=== PATIENT | female | born 1950 | race Asian ===

== ENCOUNTER 2020-07-13 09:34 | Emergency (ER) | payer MEDICARE, OTHER ==
[2020-07-13] MEDS ORDERED: NORMAL SALINE 1000 ML 1,000 ML IV ONE (11:21)
[2020-07-13] MEDS ORDERED: ONDANSETRON HCL INJ/PF 4 MG/2 ML SDV IV ONE (11:21)
[2020-07-13] MEDS ORDERED: MORPHINE SULFATE 10 MG/ML INJ IV ONE (11:21)
--- NOTE | 2020-07-13 11:41 | RADIOLOGY REPORT (SQ) ---
EXAM DESCRIPTION: CHEST SINGLE VIEW IMAGES COMPLETED DATE/TIME: 07/13/2020 11:31 am REASON FOR STUDY: fever, nausea/vomiting COMPARISON: None. EXAM PARAMETERS: NUMBER OF VIEWS: One view. TECHNIQUE: Single frontal radiographic view of the chest acquired. RADIATION DOSE: NA LIMITATIONS: None. FINDINGS: LUNGS AND PLEURA: No opacities, masses or pneumothorax. No pleural effusion. MEDIASTINUM AND HILAR STRUCTURES: No masses. Contour normal. HEART AND VASCULAR STRUCTURES: Heart normal in size. Normal vasculature. BONES: No acute findings. HARDWARE: None in the chest. OTHER: No other significant finding. IMPRESSION: NO ACUTE RADIOGRAPHIC FINDING IN THE CHEST. TECHNICAL DOCUMENTATION: JOB ID: [id number] 2010 [employer]- All Rights Reserved Reading location - IP/workstation name: [email or web address]
--- NOTE | 2020-07-13 11:52 | ER Document Report ---
ED General - General Chief Complaint: Abdominal Pain Stated Complaint: ABDOMINAL PAIN, FEVER, NAUSEA VOMITING Time Seen by Provider: 07/13/20 10:56 Primary Care Provider: DAVID STILL MD [Primary Care Provider] - Follow up as needed TRAVEL OUTSIDE OF THE [place] IN LAST 30 DAYS: No - HPI Notes: Patient is a 70-year-old female presents emergency department for evaluation of abdominal pain. She states it started Thursday and is progressively worsened. She describes it is periumbilical and states that radiates to the left side. Pain is worsened by movement. She has had very little appetite. She had one episode of nonbloody, nonbilious emesis on Thursday. She had one episode of diarrhea yesterday. She states she had a fever of 101 degrees. She denies any cough or shortness of breath. No nasal congestion or change in sense of smell. She did have a recent EGD with stomach biopsy secondary to a mass. This was performed at [facility]. Patient has not tried anything to feel better. She states she is really not eating much. - Related Data Allergies/Adverse Reactions: No Known Allergies Allergy (Unverified 05/20/12 19:11) Home Medications: List reviewed at bedside Past Medical History - General Information source: Patient, Relative - Daughter - Social History Smoking Status: Never Smoker Chew tobacco use (# tins/day): No Frequency of alcohol use: None Drug Abuse: None Family History: Arthritis, CAD, DM, Hyperlipidemia, Hypertension, Malignancy Patient has homicidal ideation: No - Past Medical History Cardiac Medical History: Reports: Hx Hypercholesterolemia, Hx Hypertension Denies: Hx Coronary Artery Disease Pulmonary Medical History: Denies: Hx Asthma Endocrine Medical History: Reports: Hx Diabetes Mellitus Type 2. Denies: Hx Diabetes Mellitus Type 1 Past Surgical History: Reports: Hx Section, Hx Oral Surgery - Immunizations Immunizations up to date: Yes Hx Diphtheria, Pertussis, Tetanus Vaccination: Yes Review of Systems - Review of Systems Constitutional: See HPI EENT: No symptoms reported Cardiovascular: No symptoms reported Respiratory: No symptoms reported Gastrointestinal: See HPI Genitourinary: No symptoms reported Musculoskeletal: No symptoms reported Skin: No symptoms reported Neurological/Psychological: No symptoms reported Physical Exam - Vital signs Vitals: Temp Pulse Resp BP Pulse Ox 98.2 F 99 24 H 132/58 H 97 07/13/20 09:41 01/01/21 09:41 07/13/20 09:41 07/13/20 09:41 07/13/20 09:41 - Notes Notes: This is a 70-year-old female who appears her stated age in a mild to moderate distress. Vital signs reviewed, please refer to chart. Head is normocephalic, atraumatic. Pupils equal round, reactive to light. Neck is supple without meningismus. Heart is regular rate and rhythm. Lungs are clear to auscultation bilaterally. Abdomen is moderately tender in the epigastrium with significant tenderness in the left upper quadrant, voluntary guarding without rebound, normoactive bowel sounds throughout. Extremities without cyanosis, clubbing. Posterior calves are nontender. Peripheral pulses are equal. Skin is warm and dry. Patient is awake, alert, neurological exam is nonfocal. Course - Re-evaluation Re-evalutation: 07/13/20 11:51 Patient presents to the emergency department for evaluation. She is had a fever, vomiting, diarrhea. She has significant left upper quadrant tenderness. The patient has multiple comorbidities, did recently have instrumentation. Laboratory investigations have been ordered, including influenza swab. I did order chest x-ray given the current Covid pandemic as well, but she really does have minimal respiratory symptoms to report. Influenza swab ordered. Patient will be given IV fluids, pain medicine, nausea medication. She is to be kept n.p.o. She is currently stable, we will continue to monitor. - Vital Signs Vital signs: Temp Pulse Resp BP Pulse Ox 100.3 F 97 24 H 116/61 98 07/13/20 13:43 07/13/20 13:43 07/13/20 13:43 07/13/20 13:43 07/13/20 13:43 - Laboratory Results Result Diagrams: 07/13/20 11:45 07/13/20 13:22 Laboratory Results Interpreted: 07/13/20 07/13/20 07/13/20 11:45 13:00 13:22 WBC 13.9 H Hgb 8.9 L Hct 27.6 L MCV 63 L MCH 20.4 L RDW 17.3 H Plt Count 470 H Lymph % (Auto) 5.6 L Absolute Neuts (auto) 12.3 H Seg Neutrophils % 88.5 H Sodium 133.1 L Carbon Dioxide 18 L BUN 24 H Glucose 121 H Calcium 8.2 L AST 438 H Albumin 3.3 L Urine Protein 30 H Urine Glucose (UA) >=500 H Urine Ketones TRACE H Critical Laboratory Results Reviewed: No Critical Results - Radiology Results Radiology Results Interpreted: 07/13/20 17:07 Abdomen/Pelvis CT 07/13/20 11:22 IMPRESSION: 1. LARGE HETEROGENOUS MASS LOCATED POSTERIOR TO THE STOMACH AND SUPERIOR TO THE LEFT KIDNEY DESCRIBED ABOVE. THIS IS SEPARATE FROM THE KIDNEY. MAY BE ASSOCIATED WITH THE POSTERIOR WALL OF THE STOMACH. 2. SCLEROTIC LESION IN THE LEFT ISCHIUM. DIFFICULT TO DETERMINE IF THIS IS BENIGN SCLEROSIS OR METASTASIS. 3. OTHER INCIDENTAL FINDINGS. SMALL CORTICAL CYST IN THE LEFT KIDNEY. SMALL UMBILICAL HERNIA. NO OTHER SIGNIFICANT OR ACUTE FINDING IN THE ABDOMEN OR PELVIS ON CT SCAN WITH IV CONTRAST. Chest X-Ray 07/13/20 11:22 IMPRESSION: NO ACUTE RADIOGRAPHIC FINDING IN THE CHEST. Critical Radiology Results Reviewed: No Critical Results Discharge - Discharge Clinical Impression: LUQ abdominal pain Nausea & vomiting Qualifiers: Vomiting type: unspecified Vomiting Intractability: non-intractable Qualified Code(s): R11.2 - Nausea with vomiting, unspecified Diarrhea Qualifiers: Diarrhea type: unspecified type Qualified Code(s): R19.7 - Diarrhea, unspecified Anemia Qualifiers: Anemia type: unspecified type Qualified Code(s): D64.9 - Anemia, unspecified Condition: Stable Disposition: HOME, SELF-CARE Instructions: Abdominal Pain ([facility]), Intravenous (IV) Fluids ([facility]), Diarrhea, Nonspecific ([facility]), Vomiting ([facility]) Additional Instructions: Your CT scan showed your known masses, and other findings. I have nothing to compare this to, but please bring these reports to your physician at [facility]. In addition, your hemoglobin was found to be 8.9. I do not have any old labs to compare this, and I am unsure as to whether or not this is a new anemia. This should be addressed by your primary care provider as well. Otherwise, no significant reason has been found as of yet for your abdominal pain, vomiting, or diarrhea. I have ordered a Covid test, you should quarantine at home until results are obtained. Zofran as needed for nausea, Carpenter as needed for severe pain. Please watch for constipation with this medication. Small, frequent sips of fluids. If you develop worsening or new concerning symptoms of any sort, please return immediately to the emergency department for reevaluation, and notify them that you are in fact a PUI. Referrals: DAVID STILL MD [Primary Care Provider] - Follow up as needed
[2020-07-13 12:04] LABS: ABSOLUTE LYMPHOCYTES (AUTO) 0.8 10^3/uL (0.5-4.7); ABSOLUTE MONOCYTES (AUTO) 0.8 10^3/uL (0.1-1.4); ABSOLUTE NEUT (AUTO) 12.3 10^3/uL (1.7-8.2); BASOPHILS % (AUTO) 0.2 % (0-2); EOSINOPHILS % (AUTO) 0.2 % (0-6); HEMATOCRIT 27.6 % (36.0-47.0); HEMOGLOBIN 8.9 g/dL (12.0-15.5); LYMPHOCYTES % (AUTO) 5.6 % (13-45); MEAN CORPUSCULAR HEMOGLOBIN 20.4 pg (27.0-33.4); MEAN CORPUSCULAR HGB CONC 32.3 g/dL (32.0-36.0); MONOCYTES % (AUTO) 5.5 % (3-13); PLATELET COUNT 470 10^3/uL (150-450); RED BLOOD COUNT 4.38 10^6/uL (3.72-5.28); RED CELL DISTRIBUTION WIDTH 17.3 % (11.5-14.0); SEGMENTED NEUTROPHILS % (AUTO) 88.5 % (42-78); TOTAL CELLS COUNTED % (AUTO) 100 %; WHITE BLOOD COUNT 13.9 10^3/uL (4.0-10.5)
[2020-07-13 12:24] LABS: ANISOCYTOSIS 1+; BURR CELLS SLIGHT; HYPOCHROMASIA 1+; MEAN CORPUSCULAR VOLUME 63 fl (80-97); OVALOCYTES SLIGHT; POIKILOCYTOSIS SLIGHT; POLYCHROMASIA SLIGHT; TOXIC VACUOLATION PRESENT
[2020-07-13 12:25] LABS: PLATELET COMMENT INCREASED
[2020-07-13 13:18] LABS: APPEARANCE,URINE SLIGHTLY-CLOUDY; BILIRUBIN,URINE NEGATIVE (NEGATIVE); COLOR,URINE YELLOW; GLUCOSE, URINE >=500 mg/dL (NEGATIVE); KETONES,URINE TRACE mg/dL (NEGATIVE); LEUKOCYTE ESTERASE,URINE NEGATIVE (NEGATIVE); NITRITE,URINE NEGATIVE (NEGATIVE); PROTEIN,URINE 30 mg/dL (NEGATIVE); URINE SPECIFIC GRAVITY 1.024; UROBILINOGEN,URINE NEGATIVE mg/dL (<2.0)
[2020-07-13 13:32] LABS: A TYPE INFLUENZA AG NEGATIVE (NEGATIVE); B INFLUENZA AG NEGATIVE (NEGATIVE)
[2020-07-13 13:53] LABS: ALBUMIN 3.3 g/dL (3.5-5.0); ALKALINE PHOSPHATASE 65 U/L (38-126); ANION GAP 12 (5-19); ASPARTATE AMINO TRANSFERASE 438 U/L (14-36); BILIRUBIN,DIRECT 0.3 mg/dL (0.0-0.4); BILIRUBIN,TOTAL 0.6 mg/dL (0.2-1.3); BLOOD UREA NITROGEN 24 mg/dL (7-20); CALCIUM 8.2 mg/dL (8.4-10.2); CARBON DIOXIDE 18 mmol/L (22-30); CHLORIDE 103 mmol/L (98-107); GLUCOSE 121 mg/dL (75-110); POTASSIUM 3.9 mmol/L (3.6-5.0); TOTAL PROTEIN 6.6 g/dL (6.3-8.2)
--- NOTE | 2020-07-13 15:39 | RADIOLOGY REPORT (SQ) ---
EXAM DESCRIPTION: CT ABD/PELVIS WITH IV ONLY IMAGES COMPLETED DATE/TIME: 07/13/2020 2:42 pm REASON FOR STUDY: upper abdominal pain, recent EGD with biopsy COMPARISON: None. TECHNIQUE: CT scan of the abdomen and pelvis performed using helical scanning technique with dynamic intravenous contrast injection. No oral contrast. Images reviewed with lung, soft tissue, and bone windows. Reconstructed coronal and sagittal MPR images reviewed. Delayed images for evaluation of the urinary system also acquired. All images stored on PACS. All CT scanners at this facility use dose modulation, iterative reconstruction, and/or weight based d osing when appropriate to reduce radiation dose to as low as reasonably achievable (ALARA). [facility]: Dose Right [facility]: CareDose [facility]: Dose Right [facility]: Teradose 4D [facility]: [employer] CONTRAST TYPE AND DOSE: contrast/concentration: Isovue 350.00 mmol/ml; Total Contrast Delivered: 75. 0 ml; Total Saline Delivered: 67.0 ml RENAL FUNCTION: BUN 24 creatinine 0.68. RADIATION DOSE: CT Rad equipment meets quality standard of care and radiation dose reduction techniq ues were employed. CTDIvol: 6.3 - 6.3 mGy. DLP: 652 mGy-cm.. LIMITATIONS: None. FINDINGS: LOWER CHEST: Linear atelectasis versus scarring in the lung bases. LIVER: Normal size. Mild fatty infiltration. No masses. No dilated ducts. SPLEEN: Normal size. No focal lesions. PANCREAS: No masses. No significant calcifications. No adjacent inflammation or peripancreatic fluid collections. Pancreatic duct not dilated. GALLBLADDER: No identified stones by CT criteria. No inflammatory changes to suggest cholecystitis. ADRENAL GLANDS: The right adrenal gland is unremarkable. A normal left adrenal gland is not visualiz ed. RIGHT KIDNEY AND URETER: No solid masses. No significant calcifications. No hydronephrosis or hyd roureter. LEFT KIDNEY AND URETER: Lower pole cortical cyst. No solid masses. No significant calcifications. No hydronephrosis or hydroureter. AORTA AND VESSELS: No aneurysm. No dissection. Renal arteries, SMA, celiac without stenosis. RETROPERITONEUM: There is a large heterogenous mass located posterior to the stomach and superior to the left kidney. On coronal and sagittal images this appears to be separate from the kidney itself. May be associated with the posterior wall of the stomach. This mass has maximum transverse measurem ents of 11.5 x 12.5 cm and craniocaudal measurement of 13 cm. There is anterior displacement of the pancreas, stomach, and spleen and inferior and lateral displacement of the left kidney. BOWEL AND PERITONEAL CAVITY: No masses or inflammatory changes. No free fluid or peritoneal masses. APPENDIX: Normal. PELVIS: No mass. No free fluid. Normal bladder. ABDOMINAL WALL: No masses. Small umbilical hernia containing fat. BONES: Sclerotic lesion in the left ischium. No acute findings. OTHER: No other significant finding. IMPRESSION: 1. LARGE HETEROGENOUS MASS LOCATED POSTERIOR TO THE STOMACH AND SUPERIOR TO THE LEFT KIDNEY DESCRI BED ABOVE. THIS IS SEPARATE FROM THE KIDNEY. MAY BE ASSOCIATED WITH THE POSTERIOR WALL OF THE STOMA CH. 2. SCLEROTIC LESION IN THE LEFT ISCHIUM. DIFFICULT TO DETERMINE IF THIS IS BENIGN SCLEROSIS OR METAS TASIS. 3. OTHER INCIDENTAL FINDINGS. SMALL CORTICAL CYST IN THE LEFT KIDNEY. SMALL UMBILICAL HERNIA. NO O THER SIGNIFICANT OR ACUTE FINDING IN THE ABDOMEN OR PELVIS ON CT SCAN WITH IV CONTRAST. TECHNICAL DOCUMENTATION: JOB ID: [id number] Quality ID # [id number]: Final reports with documentation of one or more dose reduction techniques (e.g., Au tomated exposure control, adjustment of the mA and/or kV according to patient size, use of iterative reconstruction technique) 2010 [employer]- All Rights Reserved Reading location - IP/workstation name: [email or web address]
[2020-07-13] MEDS ORDERED: HYDROCODONE/ACETAMINOPHEN 5-325 MG (6 TAB/ER DISP) PO PRN (17:05)
[2020-07-13] MEDS ORDERED: ONDANSETRON ODT 4 MG TAB (6 TAB/ER DISP) PO PRN (17:05)
[2020-07-13] MEDS ORDERED: ACETAMINOPHEN 325 MG TABLET PO ONE (17:10)
[2020-07-13 17:44] VITALS: BP 133/62
[2020-07-16 11:43] LABS: PATH REVIEW PATHOLOGIST REVIEWED
== END 2020-07-13 17:43 | disposition home or self-care (01) ==
LOC: ER 09:34
DX: R10.12 Left upper quadrant pain (principal); R11.2 Nausea with vomiting, unspecified; R19.7 Diarrhea, unspecified; R50.9 Fever, unspecified; D64.9 Anemia, unspecified; E78.00 Pure hypercholesterolemia, unspecified; I10 Essential (primary) hypertension; E11.9 Type 2 diabetes mellitus without complications; Z20.822 Contact with and (suspected) exposure to COVID-19
CPT/HCPCS: 99285; 96361; 96374; 96375; 36415; 83690; 85025; 80053; 81001; 87804; 71045; 74177; U0003; A9270 ×3; J2270; J2405; J7030; C9803; 87635

== ENCOUNTER 2020-07-15 12:22 | Emergency (ER) | payer MEDICARE, OTHER ==
[2020-07-15 13:07] LABS: HEMATOCRIT 27.2 % (36.0-47.0); HEMOGLOBIN 8.5 g/dL (12.0-15.5); MEAN CORPUSCULAR HEMOGLOBIN 19.9 pg (27.0-33.4); MEAN CORPUSCULAR HGB CONC 31.4 g/dL (32.0-36.0); MEAN CORPUSCULAR VOLUME 63 fl (80-97); PLATELET COUNT 502 10^3/uL (150-450); RED CELL DISTRIBUTION WIDTH 16.9 % (11.5-14.0)
[2020-07-15 13:30] LABS: ALBUMIN 3.2 g/dL (3.5-5.0); ALKALINE PHOSPHATASE 106 U/L (38-126); ANION GAP 17 (5-19); ASPARTATE AMINO TRANSFERASE 108 U/L (14-36); BILIRUBIN,DIRECT 0.6 mg/dL (0.0-0.4); BILIRUBIN,TOTAL 0.9 mg/dL (0.2-1.3); BLOOD UREA NITROGEN 20 mg/dL (7-20); CALCIUM 8.9 mg/dL (8.4-10.2); CARBON DIOXIDE 14 mmol/L (22-30); CHLORIDE 102 mmol/L (98-107); GLUCOSE 154 mg/dL (75-110); POTASSIUM 4.1 mmol/L (3.6-5.0); TOTAL PROTEIN 6.7 g/dL (6.3-8.2)
[2020-07-15 13:45] LABS: ABSOLUTE MONOCYTES # (MANUAL) 0.1 10^3/uL (0.1-1.4); BAND NEUTROPHILS % (MANUAL) 3 % (3-5); BASOPHILS % (MANUAL) 0 % (0-2); EOSINOPHILS % (MANUAL) 1 % (0-6); LYMPHOCYTES % (MANUAL) 14 % (13-45); MONOCYTES % (MANUAL) 1 % (3-13); SEGMENTED NEUTROPHILS % (MAN) 81 % (42-78); TOTAL CELLS COUNTED 100
[2020-07-15 13:46] LABS: TOXIC VACUOLATION PRESENT
[2020-07-15 13:47] LABS: ANISOCYTOSIS 1+; HYPOCHROMASIA SLIGHT; OVALOCYTES SLIGHT; PLATELET COMMENT ADEQUATE
[2020-07-15] MEDS ORDERED: NORMAL SALINE 1000 ML 1,000 ML IV ONE (14:25)
[2020-07-15] MEDS ORDERED: CEFEPIME 1 GM/D5W RTU 1 GM/50 ML RTUPB IV ONE (14:32)
[2020-07-15] MEDS ORDERED: VANCOMYCIN HCL INJ 1000 MG VIAL IV ONE (14:32)
[2020-07-15] MEDS ORDERED: MORPHINE SULFATE 10 MG/ML INJ IV ONE (14:33)
[2020-07-15] MEDS ORDERED: ONDANSETRON HCL INJ/PF 4 MG/2 ML SDV IV ONE (14:33)
[2020-07-15] MEDS ORDERED: ACETAMINOPHEN 1,000 MG/100 ML RTUPB IV ONE (14:36)
[2020-07-15 14:39] LABS: INTERNATIONAL RATION (INR) 1.19; PROTHROMBIN TIME 15.3 SEC (11.4-15.4)
--- NOTE | 2020-07-15 15:44 | RADIOLOGY REPORT (SQ) ---
EXAM DESCRIPTION: CHEST SINGLE VIEW IMAGES COMPLETED DATE/TIME: 07/15/2020 3:04 pm REASON FOR STUDY: fever/cough/suspect covid COMPARISON: 07/13/2020 NUMBER OF VIEWS: One view. TECHNIQUE: Single frontal radiographic image of the chest acquired. LIMITATIONS: Poor inspiratory effort. FINDINGS: LUNGS AND PLEURA: Segmental airspace disease in the left lower lobe. Small left pleural e ffusion. MEDIASTINUM AND HEART: Stable heart size and mediastinal structures. BONY STRUCTURES: No acute findings. HARDWARE: None. OTHER: No other significant finding. IMPRESSION: Left lower lobe pneumonia. TECHNICAL DOCUMENTATION: JOB ID: [id number] Reading location - IP/workstation name: [email or web address]
--- NOTE | 2020-07-15 16:30 | RADIOLOGY REPORT (SQ) ---
EXAM DESCRIPTION: ABDOMEN 2 VIEWS IMAGES COMPLETED DATE/TIME: 07/15/2020 4:03 pm REASON FOR STUDY: abdominal pain COMPARISON: CT from 2 days ago. NUMBER OF VIEWS: Two views. TECHNIQUE: Supine and erect/decubitus radiographic images of the abdomen acquired. LIMITATIONS: None. FINDINGS: FREE AIR: None. No abnormal gas collections. LUNG BASES: Dense consolidation/ volume loss in the left base. BOWEL GAS PATTERN: Mild gaseous distention of large bowel. No fixed mechanical obstruction suggested . CALCIFICATIONS: Calcifications related to a left upper quadrant mass as better demonstrated on CT. SOFT TISSUES: No gross mass or suggestion of organomegaly. HARDWARE: None in the abdomen. BONES: No acute fracture. No worrisome bone lesions. OTHER: No other significant finding. IMPRESSION: 1. Left lower lobe pneumonia. TECHNICAL DOCUMENTATION: JOB ID: [id number] 2010 [employer]- All Rights Reserved Reading location - IP/workstation name: [email or web address]
[2020-07-15 16:55] LABS: C-REACTIVE PROTEIN 532.6 mg/L (<10.0)
[2020-07-15 16:59] LABS: VENOUS BLOOD BASE EXCESS -7.7 mmol/L; VENOUS BLOOD HCO3 16.2 mmol/L (20-32); VENOUS BLOOD PCO2 29.4 mmHg (35-63); VENOUS BLOOD PH 7.36 (7.30-7.42)
[2020-07-15 17:08] LABS: APPEARANCE,URINE SLIGHTLY-CLOUDY; BILIRUBIN,URINE NEGATIVE (NEGATIVE); COLOR,URINE YELLOW; GLUCOSE, URINE >=500 mg/dL (NEGATIVE); KETONES,URINE 20 mg/dL (NEGATIVE); LEUKOCYTE ESTERASE,URINE NEGATIVE (NEGATIVE); NITRITE,URINE NEGATIVE (NEGATIVE); PROTEIN,URINE 30 mg/dL (NEGATIVE); URINE SPECIFIC GRAVITY 1.027
--- NOTE | 2020-07-15 17:44 | RADIOLOGY REPORT (SQ) ---
EXAM DESCRIPTION: CTA CHEST IMAGES COMPLETED DATE/TIME: 07/15/2020 2:26 pm REASON FOR STUDY: fever/cough/covid suspected COMPARISON: Single-view chest same date. TECHNIQUE: CT scan of the chest performed using helical scanning technique with dynamic intravenous contrast injection. Images reviewed with lung, soft tissue and bone windows. Reconstructed coronal and sagittal MPR images reviewed. Additional 3 dimensional post-processing performed to develop Maximal Intensity Projection images (DC P). All images stored on PACS. All CT scanners at this facility use dose modulation, iterative reconstruction, and/or weight based d osing when appropriate to reduce radiation dose to as low as reasonably achievable (ALARA). [facility]: Dose Right [facility]: CareDose [facility]: Dose Right [facility]: Teradose 4D [facility]: [employer] CONTRAST TYPE AND DOSE: contrast/concentration: Isovue 350.00 mmol/ml; Total Contrast Delivered: 75. 0 ml; Total Saline Delivered: 55.0 ml Contrast bolus adequate for pulmonary arteries and aorta. RENAL FUNCTION: Creatinine 0.71 RADIATION DOSE: CT Rad equipment meets quality standard of care and radiation dose reduction techniq ues were employed. CTDIvol: 7.5 - 7.8 mGy. DLP: 273 mGy-cm. . LIMITATIONS: None. FINDINGS: LUNGS AND PLEURA: Small to moderate left pleural effusion. Adjacent opacities probably re presenting atelectasis. Cannot definitively exclude a superimposed infection. Mild atelectasis in t he right lower lung. No pneumothorax. No suspicious pulmonary nodule identified. AORTA AND GREAT VESSELS: No aneurysm. No dissection. HEART: No pericardial effusion. Trace coronary artery calcifications. PULMONARY ARTERIES: No filling defect in the main, right or left pulmonary arteries. No filling defe cts in the lobar, visualized segmental or subsegmental pulmonary arteries. HILAR AND MEDIASTINAL STRUCTURES: No identified masses or abnormal nodes. HARDWARE: None in the chest. UPPER ABDOMEN: O[place] of the stomach are somewhat ill defined with heterogeneous masslike lesion along the posterolateral aspect of the stomach in the left upper quadrant. See recent CT abdomen pelvis C T for further details. This is incompletely evaluated on this examination. THYROID AND OTHER SOFT TISSUES: No masses. No adenopathy. BONES: No acute or significant finding. 3D MIPS: Confirm above findings. OTHER: No other significant finding. IMPRESSION: 1. No visualized pulmonary embolism. 2. Small to moderate left pleural effusion with adjacent opacities probably representing atelectasis . Cannot definitively exclude a supra is mild infectious process. COMMENT: Quality ID # [id number]: Final reports with documentation of one or more dose reduction techniques (e.g., Automated exposure control, adjustment of the mA and/or kV according to patient size, use of iterative reconstruction technique) TECHNICAL DOCUMENTATION: JOB ID: [id number] 2010 [employer]- All Rights Reserved Reading location - IP/workstation name: [email or web address]
--- NOTE | 2020-07-15 17:56 | EKG REPORT ---
SEVERITY:- BORDERLINE ECG - SINUS TACHYCARDIA PROBABLE LEFT ATRIAL ABNORMALITY : Confirmed by: Hunter Elizabeth MD 15-Jul-2020 17:56:07
[2020-07-15] MEDS: DEXAMETHASONE 4 MG TABLET PO ONE ×2 (19:43→19:44)
--- NOTE | 2020-07-15 21:23 | ER Document Report ---
Entered by RONAL BYNUM SCRIBE 07/15/20 1424 Acting as scribe for:NELLI JORDAN MD ED General - General Chief Complaint: Abdominal Pain Stated Complaint: ABDOMINAL PAIN Primary Care Provider: DAVID STILL MD [Primary Care Provider] - Follow up as needed Information source: Patient Notes: This 70 year old female patient presents to the emergency department today with complaints of abdominal pain, diaphoresis, chills, fever, and a cough. Patient states she was seen here in [facility] ED x2 days ago for her abdominal pain and visited [facility] yesterday. 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 Patient states there is not yet any results from this biopsy and is also waiting for results from her covid swab from her visit in the ED x2 days ago. TRAVEL OUTSIDE OF THE [place] IN LAST 30 DAYS: No - Related Data Allergies/Adverse Reactions: No Known Allergies Allergy (Unverified 05/20/12 19:11) Home Medications: zofran, percocet, escitalopram, ezetimbe, cetirizine, janumet, jardiance, lisinopril, simvastatin, d3, b12, aspirin, tricor, zolpidem Past Medical History - General Information source: Patient, [facility] Records - Social History Smoking Status: Never Smoker Cigarette use (# per day): No Chew tobacco use (# tins/day): No Frequency of alcohol use: None Drug Abuse: None Family History: Arthritis, CAD, DM, Hyperlipidemia, Hypertension, Malignancy - Past Medical History Cardiac Medical History: Reports: Hx Hypercholesterolemia, Hx Hypertension Endocrine Medical History: Reports: Hx Diabetes Mellitus Type 2 Past Surgical History: Reports: Hx Section, Hx Oral Surgery - Immunizations Immunizations up to date: Yes Hx Diphtheria, Pertussis, Tetanus Vaccination: Yes Review of Systems - Review of Systems Constitutional: See HPI, Chills, Diaphoresis, Fever EENT: No symptoms reported Cardiovascular: No symptoms reported Respiratory: See HPI, Cough Gastrointestinal: See HPI, Abdominal pain Genitourinary: No symptoms reported Female Genitourinary: No symptoms reported Musculoskeletal: No symptoms reported Skin: No symptoms reported Hematologic/Lymphatic: No symptoms reported Neurological/Psychological: No symptoms reported -: Yes All other systems reviewed and negative Physical Exam - Vital signs Vitals: Temp Resp BP Pulse Ox 99.8 F 37 H 133/70 H 94 07/15/20 12:38 07/15/20 12:38 07/15/20 12:38 07/15/20 12:38 - General General appearance: Alert, Lethargic - HEENT Head: Normocephalic, Atraumatic Eyes: Normal Pupils: PERRL - Respiratory Respiratory status: No respiratory distress Chest status: Nontender Notes: Decreased breath sounds bilaterally. - Cardiovascular Rhythm: Tachycardia Heart sounds: Normal auscultation Murmur: No - Abdominal Bowel sounds: Normal Notes: Surgical abdomen. Tenderness with palpation to the abdomen, Guarding. - Extremities General upper extremity: Normal inspection, Normal ROM General lower extremity: Normal inspection, Normal ROM. No: Edema - Neurological Neuro grossly intact: Yes Cognition: Normal Orientation: AAOx4 [place] Coma Scale Eye Opening: Spontaneous [place] Coma Scale Verbal: Oriented [place] Coma Scale Motor: Obeys Commands [place] Coma Scale Total: 15 Speech: Normal Sensory: Normal - Psychological Associated symptoms: Normal affect, Normal mood - Skin Skin Temperature: Warm Skin Moisture: Dry Skin Color: Normal Course - Re-evaluation Re-evalutation: 07/16/20 18:52 Patient was in pain in her abdome where she recently had had an needle biopsy done by a pillow agent at [facility]. - Vital Signs Vital signs: Temp Pulse Resp BP Pulse Ox 97.9 F 21 H 145/76 H 96 07/15/20 21:36 07/15/20 21:36 07/15/20 21:36 07/15/20 21:36 07/16/20 18:53 Vital signs were stable. - Laboratory Results Result Diagrams: 07/15/20 12:41 07/15/20 12:41 Laboratory Results Interpreted: 07/15/20 07/15/20 07/15/20 12:41 12:41 12:41 WBC 14.0 H Hgb 8.5 L Hct 27.2 L MCV 63 L MCH 19.9 L MCHC 31.4 L RDW 16.9 H Plt Count 502 H Seg Neuts % (Manual) 81 H Monocytes % (Manual) 1 L Abs Neuts (Manual) 11.8 H D-Dimer VBG pCO2 VBG HCO3 Sodium 132.5 L Carbon Dioxide 14 L Glucose 154 H Direct Bilirubin 0.6 H AST 108 H Lactate Dehydrogenase C-Reactive Protein NT-Pro-B Natriuret Pep 680 H Albumin 3.2 L Urine Protein Urine Glucose (UA) Urine Ketones Urine Urobilinogen Urine Ascorbic Acid 07/15/20 07/15/20 07/15/20 12:41 16:50 16:50 WBC Hgb Hct MCV MCH MCHC RDW Plt Count Seg Neuts % (Manual) Monocytes % (Manual) Abs Neuts (Manual) D-Dimer 9.15 H VBG pCO2 VBG HCO3 Sodium Carbon Dioxide Glucose Direct Bilirubin AST Lactate Dehydrogenase 990 H C-Reactive Protein 532.6 H NT-Pro-B Natriuret Pep Albumin Urine Protein Urine Glucose (UA) Urine Ketones Urine Urobilinogen Urine Ascorbic Acid 07/15/20 07/15/20 16:50 16:50 WBC Hgb Hct MCV MCH MCHC RDW Plt Count Seg Neuts % (Manual) Monocytes % (Manual) Abs Neuts (Manual) D-Dimer VBG pCO2 29.4 L VBG HCO3 16.2 L Sodium Carbon Dioxide Glucose Direct Bilirubin AST Lactate Dehydrogenase C-Reactive Protein NT-Pro-B Natriuret Pep Albumin Urine Protein 30 H Urine Glucose (UA) >=500 H Urine Ketones 20 H Urine Urobilinogen 2.0 H Urine Ascorbic Acid 20 H 07/16/20 18:54 Elevated white blood cell count of 14,000 with elevated C-reactive protein elevated LDH elevated D-dimer 9.15 07/16/20 18:55 Consideration, COVID-19 was highly probable with these lab results. 07/16/20 18:56 Labs- Entire Visit 07/15/20 07/15/20 07/15/20 12:41 12:41 12:41 WBC 14.0 H RBC 4.30 Hgb 8.5 L Hct 27.2 L MCV 63 L MCH 19.9 L MCHC 31.4 L RDW 16.9 H Plt Count 502 H Lymph % (Auto) Not Reportable [place] % (Auto) Not Reportable Eos % (Auto) Not Reportable Baso % (Auto) Not Reportable Absolute Neuts (auto) Not Reportable Absolute Lymphs (auto) Not Reportable Absolute Monos (auto) Not Reportable Absolute Eos (auto) Not Reportable Absolute Basos (auto) Not Reportable Total Counted 100 Seg Neutrophils % Not Reportable Seg Neuts % (Manual) 81 H Band Neutrophils % 3 Lymphocytes % (Manual) 14 Monocytes % (Manual) 1 L Eosinophils % (Manual) 1 Basophils % (Manual) 0 Abs Neuts (Manual) 11.8 H Abs Lymphs (Manual) 2.0 Abs Monocytes (Manual) 0.1 Absolute Eos (Manual) 0.1 Abs Basophils (Manual) 0.0 Toxic Vacuolation PRESENT Platelet Comment ADEQUATE Hypochromasia SLIGHT Anisocytosis 1+ Microcytosis 3+ Ovalocytes SLIGHT PT 15.3 INR 1.19 D-Dimer VBG pH VBG pCO2 VBG HCO3 VBG Base Excess Sodium 132.5 L Potassium 4.1 Chloride 102 Carbon Dioxide 14 L Anion Gap 17 BUN 20 Creatinine 0.71 Est GFR ( Amer) > 60 Est GFR (MDRD) Non-Af > 60 Glucose 154 H Lactic Acid Calcium 8.9 Ferritin Total Bilirubin 0.9 Direct Bilirubin 0.6 H Neonat Total Bilirubin Not Reportable Neonat Direct Bilirubin Not Reportable Neonat Indirect Bili Not Reportable AST 108 H ALT 12 Alkaline Phosphatase 106 Lactate Dehydrogenase Troponin I C-Reactive Protein NT-Pro-B Natriuret Pep Total Protein 6.7 Albumin 3.2 L Lipase 48.8 Urine Color Urine Appearance Urine pH Ur Specific [place] Urine Protein Urine Glucose (UA) Urine Ketones Urine Blood Urine Nitrite Urine Bilirubin Urine Urobilinogen Ur Leukocyte Esterase Urine WBC (Auto) Urine RBC (Auto) Squamous Epi Cells Auto Urine Mucus (Auto) Urine Ascorbic Acid Influenza A (RT-PCR) Influenza B (RT-PCR) RSV (RT-PCR) SARS-CoV-2 Rap RNA(RT-PCR) 07/15/20 07/15/20 07/15/20 12:41 12:41 12:41 WBC RBC Hgb Hct MCV MCH MCHC RDW Plt Count Lymph % (Auto) [place] % (Auto) Eos % (Auto) Baso % (Auto) Absolute Neuts (auto) Absolute Lymphs (auto) Absolute Monos (auto) Absolute Eos (auto) Absolute Basos (auto) Total Counted Seg Neutrophils % Seg Neuts % (Manual) Band Neutrophils % Lymphocytes % (Manual) Monocytes % (Manual) Eosinophils % (Manual) Basophils % (Manual) Abs Neuts (Manual) Abs Lymphs (Manual) Abs Monocytes (Manual) Absolute Eos (Manual) Abs Basophils (Manual) Toxic Vacuolation Platelet Comment Hypochromasia Anisocytosis Microcytosis Ovalocytes PT INR D-Dimer VBG pH VBG pCO2 VBG HCO3 VBG Base Excess Sodium Potassium Chloride Carbon Dioxide Anion Gap BUN Creatinine Est GFR ( Amer) Est GFR (MDRD) Non-Af Glucose Lactic Acid Calcium Ferritin 140.00 Total Bilirubin Direct Bilirubin Neonat Total Bilirubin Neonat Direct Bilirubin Neonat Indirect Bili AST ALT Alkaline Phosphatase Lactate Dehydrogenase Troponin I < 0.012 C-Reactive Protein 532.6 H NT-Pro-B Natriuret Pep 680 H Total Protein Albumin Lipase Urine Color Urine Appearance Urine pH Ur Specific [place] Urine Protein Urine Glucose (UA) Urine Ketones Urine Blood Urine Nitrite Urine Bilirubin Urine Urobilinogen Ur Leukocyte Esterase Urine WBC (Auto) Urine RBC (Auto) Squamous Epi Cells Auto Urine Mucus (Auto) Urine Ascorbic Acid Influenza A (RT-PCR) Influenza B (RT-PCR) RSV (RT-PCR) SARS-CoV-2 Rap RNA(RT-PCR) 07/15/20 07/15/20 07/15/20 16:50 16:50 16:50 WBC RBC Hgb Hct MCV MCH MCHC RDW Plt Count Lymph % (Auto) [place] % (Auto) Eos % (Auto) Baso % (Auto) Absolute Neuts (auto) Absolute Lymphs (auto) Absolute Monos (auto) Absolute Eos (auto) Absolute Basos (auto) Total Counted Seg Neutrophils % Seg Neuts % (Manual) Band Neutrophils % Lymphocytes % (Manual) Monocytes % (Manual) Eosinophils % (Manual) Basophils % (Manual) Abs Neuts (Manual) Abs Lymphs (Manual) Abs Monocytes (Manual) Absolute Eos (Manual) Abs Basophils (Manual) Toxic Vacuolation Platelet Comment Hypochromasia Anisocytosis Microcytosis Ovalocytes PT INR D-Dimer 9.15 H VBG pH VBG pCO2 VBG HCO3 VBG Base Excess Sodium Potassium Chloride Carbon Dioxide Anion Gap BUN Creatinine Est GFR ( Amer) Est GFR (MDRD) Non-Af Glucose Lactic Acid 1.5 Calcium Ferritin Total Bilirubin Direct Bilirubin Neonat Total Bilirubin Neonat Direct Bilirubin Neonat Indirect Bili AST ALT Alkaline Phosphatase Lactate Dehydrogenase 990 H Troponin I C-Reactive Protein NT-Pro-B Natriuret Pep Total Protein Albumin Lipase Urine Color Urine Appearance Urine pH Ur Specific [place] Urine Protein Urine Glucose (UA) Urine Ketones Urine Blood Urine Nitrite Urine Bilirubin Urine Urobilinogen Ur Leukocyte Esterase Urine WBC (Auto) Urine RBC (Auto) Squamous Epi Cells Auto Urine Mucus (Auto) Urine Ascorbic Acid Influenza A (RT-PCR) Influenza B (RT-PCR) RSV (RT-PCR) SARS-CoV-2 Rap RNA(RT-PCR) 07/15/20 07/15/20 07/15/20 16:50 16:50 16:50 WBC RBC Hgb Hct MCV MCH MCHC RDW Plt Count Lymph % (Auto) [place] % (Auto) Eos % (Auto) Baso % (Auto) Absolute Neuts (auto) Absolute Lymphs (auto) Absolute Monos (auto) Absolute Eos (auto) Absolute Basos (auto) Total Counted Seg Neutrophils % Seg Neuts % (Manual) Band Neutrophils % Lymphocytes % (Manual) Monocytes % (Manual) Eosinophils % (Manual) Basophils % (Manual) Abs Neuts (Manual) Abs Lymphs (Manual) Abs Monocytes (Manual) Absolute Eos (Manual) Abs Basophils (Manual) Toxic Vacuolation Platelet Comment Hypochromasia Anisocytosis Microcytosis Ovalocytes PT INR D-Dimer VBG pH 7.36 VBG pCO2 29.4 L VBG HCO3 16.2 L VBG Base Excess -7.7 Sodium Potassium Chloride Carbon Dioxide Anion Gap BUN Creatinine Est GFR ( Amer) Est GFR (MDRD) Non-Af Glucose Lactic Acid Calcium Ferritin Total Bilirubin Direct Bilirubin Neonat Total Bilirubin Neonat Direct Bilirubin Neonat Indirect Bili AST ALT Alkaline Phosphatase Lactate Dehydrogenase Troponin I C-Reactive Protein NT-Pro-B Natriuret Pep Total Protein Albumin Lipase Urine Color YELLOW Urine Appearance SLIGHTLY-CLOUDY Urine pH 6.0 Ur Specific [place] 1.027 Urine Protein 30 H Urine Glucose (UA) >=500 H Urine Ketones 20 H Urine Blood NEGATIVE Urine Nitrite NEGATIVE Urine Bilirubin NEGATIVE Urine Urobilinogen 2.0 H Ur Leukocyte Esterase NEGATIVE Urine WBC (Auto) 2 Urine RBC (Auto) 1 Squamous Epi Cells Auto 1 Urine Mucus (Auto) RARE Urine Ascorbic Acid 20 H Influenza A (RT-PCR) NEGATIVE Influenza B (RT-PCR) NEGATIVE RSV (RT-PCR) NEGATIVE SARS-CoV-2 Rap RNA(RT-PCR) NEGATIVE Critical Laboratory Results Reviewed: No Critical Results - Radiology Results Radiology Results Interpreted: 07/16/20 18:55 Chest X-Ray 07/15/20 14:23 IMPRESSION: Left lower lobe pneumonia. Chest/Abdomen CTA 07/15/20 15:43 IMPRESSION: 1. No visualized pulmonary embolism. 2. Small to moderate left pleural effusion with adjacent opacities probably representing atelectasis. Cannot definitively exclude a supra is mild i nfectious process. Abdomen X-Ray 07/15/20 15:47 IMPRESSION: 1. Left lower lobe pneumonia. Chest x-ray shows left lower lobe pneumonia. Abdominal x-ray showed no obst ruction however there was a left lower no lobe pneumonia seen on the chest of the acute abdominal series. CT angiogram of chest and abdomen showed no visual pulmonary embolism small to moderate left pleural effusion with adjacent opacities most likely represent atelectasis consideration for an infectious process. Critical Radiology Results Reviewed: No Critical Results - EKG Interpretation by Me Additional EKG results interpreted by me: 07/16/20 18:58 Twelve-lead EKG shows sinus tachycardia at 118 left atrial abnormality noted normal axis. Normal ME QRS and QT intervals. No evidence of an acute STEMI. Discharge - Discharge Clinical Impression: Abdominal pain, Left lower lobe pneumonia, Pleural effusion, left, Fever and chills, Adrenal mass Condition: Stable Disposition: HOME, SELF-CARE Instructions: Abdominal Pain ([facility]) Additional Instructions: Pneumonia Your examination indicates that you have pneumonia. This is an infection of the lung tissue, usually caused by bacteria or a virus. Symptoms include cough, fever, shaking chills, chest pain, shortness of breath, and coughing up bloody sputum. Treatment for bacterial pneumonia includes rest, antibiotics for 10 to 14 days, increasing your clear liquid intake, a cool mist humidifier at your bedside, and fever medication. Often, a repeat chest X-ray is performed in a few weeks--even if you feel better--to ascertain whether the infection has completely resolved and no underlying lung problem is present. You should call the physician if you develop persistent vomiting, high fever that does not respond to fever medication, increasing shortness of breath, confusion, or lethargy. Also, failure to improve within two to three days is an indication for re-examination. You also have abdominal pain that you are currently in the midst of a work-up at [facility] you I was able to learn that you do have an appointment with As there is's as the ER is [facility] on July 20Thursday at [address] [place] [address] I would expect that you will get further information regarding that appointment that has been made for you. I learned of this after [facility] today. At that time there will be explanation of all the tissue diagnosis based on the fine-needle aspirate that was obtained by Dr. Finnegan the pillow agent. Meanwhile continue to take your pain medications as you are on Tylenol if needed for fever or as well. Please be sure to keep your appointment with Dr. Talamantes, oncologist/surgeon at [facility]. Prescriptions: Amoxicillin/Potassium Clav [Augmentin 875-125 Tablet] 1 tab PO BID #20 tab Azithromycin [Zithromax 250 mg Tablet] 250 mg PO ASDIR #6 tablet Referrals: DAVID STILL MD [Primary Care Provider] - Follow up as needed I personally performed the services described in the documentation, reviewed and edited the documentation which was dictated to the scribe in my presence, and it accurately records my words and actions.
[2020-07-15 21:45] VITALS: BP 145/76
== END 2020-07-15 21:46 | disposition home or self-care (01) ==
LOC: ER 12:22
DX: J18.9 Pneumonia, unspecified organism (principal); J90 Pleural effusion, not elsewhere classified; E27.9 Disorder of adrenal gland, unspecified; R10.9 Unspecified abdominal pain; Z20.828 Contact with and (suspected) exposure to other viral communicable diseases; R61 Generalized hyperhidrosis; R50.9 Fever, unspecified; R05 Cough; R19.00 Intra-abdominal and pelvic swelling, mass and lump, unspecified site; Z79.899 Other long term (current) drug therapy; I10 Essential (primary) hypertension; E11.9 Type 2 diabetes mellitus without complications
CPT/HCPCS: 93005; 99285; 96375; 96365; 96366; 96367; 36415; 87040; 82728; 83605; 83615; 83690; 85025; 85610; 0241U ×4; 86140; 80053; 81001; 84484; 85379; 82803; 83880; 74019; 71045; 71275; 93010; J2270; J2405; J7030; J3370; J0692; C9803; J8540